=== PATIENT | male | born 1950 | race American Indian/Alaskan Native ===

== ENCOUNTER 2016-11-08 13:11 | Emergency (ER) | payer MEDICARE, OTHER ==
[2016-11-08 13:39] VITALS: TEMP 98.9; BMI 32.5
--- NOTE | 2016-11-08 13:52 | ED PDOC ---
Arrival/HPI - General Chief Complaint: Lower Extremity Problem/Injury Time Seen by Provider: 11/08/16 13:19 Historian: Patient - History of Present Illness Narrative History of Present Illness (Text): 11/08/16 13:49 66 y/o male, pmh including lupus/htn, nkda, c/o lt. ankle and foot pain s/p twisted about 3 days ago while trying to get up from the electric wheel chair. Pt. has been having pain and swelling, no numbness or tingling, no dizziness, no night sweat, no rash, no skin pain, no other medical or psychological complaints. Past Medical History - Provider Review Nursing Documentation Reviewed: Yes - Infectious Disease Hx of Infectious Diseases: None - Cardiac Hx Pacemaker: No - Pulmonary Hx Respiratory Disorders: No - Neurological Hx Paralysis: No - HEENT Other/Comment: glasses - Renal Hx Renal Disorder: No - Endocrine/Metabolic Hx Endocrine Disorders: No - Hematological/Oncological Hx Blood Transfusions: No Hx Blood Transfusion Reaction: No - Integumentary Hx Dermatological Disorder: No - Musculoskeletal/Rheumatological Hx Musculoskeletal Disorders: Yes Other/Comment: MS - Gastrointestinal Hx Gastrointestinal Disorders: No - Genitourinary/Gynecological Hx Genitourinary Disorders: No - Psychiatric Hx Emotional Abuse: No Hx Physical Abuse: No Hx Substance Use: No - Surgical History Hx Musculoskeletal Surgery: Yes (left leg) - Anesthesia Hx Anesthesia: Yes Hx Anesthesia Reactions: No Hx Malignant Hyperthermia: No - Suicidal Assessment Feels Threatened In Home Enviroment: No Family/Social History - Physician Review Nursing Documentation Reviewed: Yes Family/Social History: Unknown Family HX Smoking Status: Heavy Smoker > 10 Cigarettes Daily Hx Alcohol Use: Yes (WEEKENDS ;PAST ETOH) Hx Substance Use: No Allergies/Home Meds Allergies/Adverse Reactions: Allergies No Known Allergies Allergy (Verified 04/13/16 09:50) Home Medications: Home Meds Medication Instructions Recorded Confirmed Dalfampridine [Ampyra] 10 mg PO BID 02/26/14 05/11/16 Losartan [Cozaar] 100 mg PO QAM 02/26/14 05/11/16 Natalizumab [Tysabri] 300 mg IVPB Q168D 01/09/15 05/11/16 Celecoxib [celeBREX] 200 mg PO BID 04/09/15 05/11/16 Amlodipine Besylate [Norvasc] 5 mg PO QAM 10/14/15 05/11/16 Zolpidem [Ambien] 10 mg PO HS 10/14/15 05/11/16 Nitrofurantoin Macrocrystals 100 mg PO BID 05/11/16 05/11/16 [Macrobid] Review of Systems - Review of Systems Constitutional: absent: Fatigue, Fevers Eyes: absent: Vision Changes ENT: absent: Hearing Changes Respiratory: absent: Cough Cardiovascular: absent: Chest Pain Gastrointestinal: absent: Abdominal Pain, Nausea, Vomiting Genitourinary Male: absent: Dysuria, Frequency Musculoskeletal: Arthralgias, Joint Swelling. absent: Back Pain, Neck Pain, Myalgias Skin: absent: Rash, Pruritis, Skin Lesions, Laceration, Abscess, Ulcer, Cellulitis Neurological: absent: Headache, Dizziness, Focal Weakness, Gait Changes, Speech Changes, Facial Droop, Disequilibrium, Seizure Physical Exam Vital Signs Reviewed: Yes Vital Signs Temp Pulse Resp BP Pulse Ox 11/08/16 13:34 98.9 F 68 18 160/77 H 96 Temperature: Afebrile Blood Pressure: Hypertensive Pulse: Regular Respiratory Rate: Normal Appearance: Positive for: Well-Appearing, Non-Toxic, Comfortable Pain Distress: Mild Mental Status: Positive for: Alert and Oriented X 3 - Systems Exam Head: Present: Atraumatic, Normocephalic Pupils: Present: PERRL Extroacular Muscles: Present: EOMI Conjunctiva: Present: Normal Mouth: Present: Moist Mucous Membranes Neck: Present: Normal Range of Motion Respiratory/Chest: Present: Clear to Auscultation, Good Air Exchange. No: Respiratory Distress, Accessory Muscle Use Cardiovascular: Present: Regular Rate and Rhythm, Normal S1, S2. No: Murmurs Abdomen: Present: Normal Bowel Sounds. No: Tenderness, Distention, Peritoneal Signs Back: Present: Normal Inspection Upper Extremity: Present: Normal Inspection. No: Cyanosis, Edema Lower Extremity: Present: Normal Inspection, Other (Lt. foot/ankle/knee: no knee tenderness or swelling, +ttp and swelling to the lt. laeral malleolus and dorsum foot with skin intact, no erythematous or cellulitis, no streaking or ulcer, +DPPT pulses, capillary refill< 2 seconds, neurovascular intact. ). No: Edema Neurological: Present: GCS=15, Speech Normal, Motor Func Grossly Intact, Memory Normal Skin: Present: Warm, Dry, Normal Color. No: Rashes Psychiatric: Present: Alert, Oriented x 3, Normal Insight, Normal Concentration Medical Decision Making ED Course and Treatment: 11/08/16 13:53 -lt. foot/ankle xray -LLE venuous doppler -pt. refused pain medication 11/08/16 15:39 -LLE venuous doppler: as per preliminary, no acute DVT -lt. ankle show no fracture or dislocation but there is degenerative changes. -lt. foot show 3rd metatarsal fracture with skin intact, no signs of infection, posterior splint applied with neurovascular intact by me. -Discharge home with education on continue your pain medication at home, posterior splint, non-weight bearing, follow up with your own pmd and foot doctor within 2 days, return to the ER for any new or worsening signs or symptoms. - RAD Interpretation Radiology Orders: 11/08/16 13:49 ANKLE LEFT 3 VIEWS ROUTINE [RAD] Stat FOOT LEFT 3 VIEWS ROUTINE [RAD] Stat DUPLEX LOWER EXTRM VEIN LEFT [US] Stat LLE venuous doppler: as per preliminary, no acute DVT Lt. foot xray: PROCEDURE: Left Foot Radiographs. HISTORY: Left foot sprain and pain x 3 days COMPARISON: None. FINDINGS: BONES: There is an acute transverse nondisplaced fracture in the base of the 3rd metatarsal. There is redemonstration of an nonunited fracture in the calcaneus. There is diffuse bone demineralization. There is no bone destruction. JOINTS: There is moderate degenerative osteoarthrosis in the 1st MTP joint with reduced joint space and marginal spurring. The remaining joint spaces are preserved. SOFT TISSUES: There is severe soft tissue swelling in the foot. OTHER FINDINGS: None. IMPRESSION: 1. Acute transverse nondisplaced fracture in the base of the 3rd metatarsal. Severe soft tissue swelling in the foot. 2. Old nonunited fracture in the calcaneus. Lt. ankle xray: PROCEDURE: Left Ankle Radiographs. HISTORY: lt. ankle sprain and pain x 3 days COMPARISON: 08/11/2015 FINDINGS: BONES: There is no acute displaced fracture. There is an old nonunited fracture in the calcaneus. There is diffuse bone demineralization JOINTS: Normal. Ankle mortise maintained. Talar dome intact SOFT TISSUES: There is moderate periarticular soft tissue swelling. OTHER FINDINGS: None. IMPRESSION: No acute displaced fracture or dislocation. Steel Buffer: Radiologist - PA / BOWL ATTENDANT / Resident Statement MD/ has reviewed & agrees with the documentation as recorded. Disposition/Present on Arrival - Present on Arrival Any Indicators Present on Arrival: No History of DVT/PE: No History of Uncontrolled Diabetes: No Urinary Catheter: No History of Decub. Ulcer: No History Surgical Site Infection Following: None - Disposition Have Diagnosis and Disposition been Completed?: Yes Diagnosis: Foot fracture Disposition: HOME/ ROUTINE Disposition Time: 13:53 Patient Plan: Discharge Condition: GOOD Additional Instructions: Discharge home with education on continue your pain medication at home, posterior splint, non-weight bearing, follow up with your own pmd and foot doctor within 2 days, return to the ER for any new or worsening signs or symptoms. Referrals: PCP,NO [Primary Care Provider] - Follow up with primary Carolin Lerma DPM [Staff Provider] - Follow up with primary Forms: WORK NOTE
--- NOTE | 2016-11-08 15:24 | RAD ---
PROCEDURE: Left Foot Radiographs. HISTORY: Left foot sprain and pain x 3 days COMPARISON: None. FINDINGS: BONES: There is an acute transverse nondisplaced fracture in the base of the 3rd metatarsal. There is redemonstration of an nonunited fracture in the calcaneus. There is diffuse bone demineralization. There is no bone destruction. JOINTS: There is moderate degenerative osteoarthrosis in the 1st MTP joint with reduced joint space and marginal spurring. The remaining joint spaces are preserved. SOFT TISSUES: There is severe soft tissue swelling in the foot. OTHER FINDINGS: None. IMPRESSION: 1. Acute transverse nondisplaced fracture in the base of the 3rd metatarsal. Severe soft tissue swelling in the foot. 2. Old nonunited fracture in the calcaneus.
--- NOTE | 2016-11-08 15:29 | RAD ---
PROCEDURE: Left Ankle Radiographs. HISTORY: lt. ankle sprain and pain x 3 days COMPARISON: 08/11/2015 FINDINGS: BONES: There is no acute displaced fracture. There is an old nonunited fracture in the calcaneus. There is diffuse bone demineralization JOINTS: Normal. Ankle mortise maintained. Talar dome intact SOFT TISSUES: There is moderate periarticular soft tissue swelling. OTHER FINDINGS: None. IMPRESSION: No acute displaced fracture or dislocation.
--- NOTE | 2016-11-08 16:17 | US ---
PROCEDURE: Left lower extremity venous US HISTORY: Leg pain and swelling. Evaluate for DVT. PHYSICIAN(S): Jovanni Hazel MD. TECHNIQUE: Duplex sonography and color-flow Doppler with graded compression were used to evaluate the deep venous system of the left lower extremity. The exam is limited by body habitus and edema. FINDINGS: The visualized deep venous system of the left lower extremity is sonographically normal and compressible. Normal wave forms and augmentation are seen. There is no sonographic evidence for deep venous thrombosis in the visualized segments of the left lower extremity. IMPRESSION: 1. No sonographic evidence for deep venous thrombosis in the visualized segments of the left lower extremity.
[2016-11-08 16:48] VITALS: BP 152/83; PULSE 76; RESP 16; O2SAT 99
== END 2016-11-08 16:45 | disposition home or self-care (01) ==
LOC: ED 13:11
DX: S92.902A Unspecified fracture of left foot, initial encounter for closed fracture (principal); X50.0XXA Overexertion from strenuous movement or load, initial encounter; Y92.89 Other specified places as the place of occurrence of the external cause

== ENCOUNTER 2017-03-15 06:54 | Day surgery (SDC) | payer MEDICARE, OTHER ==
[2017-03-15] MEDS ORDERED: Midazolam 2 MG/2 ML VIAL ONE (09:11)
[2017-03-15] MEDS ORDERED: Propofol 10 mg/ml Inj (20 ML) ONE (09:12)
[2017-03-15] MEDS ORDERED: cefTRIAXone (Rocephin) 1 gm Inj ONE (09:31)
[2017-03-15] MEDS ORDERED: Iohexol 240 (50 ml) ONE (09:31)
[2017-03-15] MEDS ORDERED: Lactated Ringer's 1,000 ML IV SCH (10:06)
--- NOTE | 2017-03-15 10:40 | OP ---
PROCEDURE DATE: 03/15/2017 PREOPERATIVE DIAGNOSIS: Bladder tumor history. POSTOPERATIVE DIAGNOSIS: Bladder tumor history with urethral stricture. PROCEDURE: Urethral dilatation, cystoscopy, bladder biopsy and fulguration and bilateral retrograde ureteropyelogram. SURGEON: Dr. Liriano. ANESTHESIA: LMA. DESCRIPTION OF PROCEDURE: After adequate LMA general anesthesia was given the patient was placed lithotomy, prepped and draped in the usual manner. A 22-Guatemalan cystourethroscope was introduced. He had a urethral stricture that was wide caliber, but too small to admit the 22-Guatemalan cystoscope. I then switched to a 17-Guatemalan cystoscope, was able to navigate through the area and inspected the bladder. There was minimal prostatitic occlusion. The bladder itself had one questionable erythema on the posterior wall. The orifices were normal in appearance with clear reflex. No stones or foreign bodies. I then removed the 17-Guatemalan cystoscope and reintroduced the 22-Guatemalan cystourethroscopy which I could do now that the urethral stricture had been dilated by the 17-Guatemalan cysto. The questionable erythematous area in the posterior wall excised and fulgurated. Attention was then directed to orifices where bilateral retrograde ureteropyelograms are carried out and appeared normal to me with no filling defects. Films will be sent for outside interpretation as well. The area was biopsied where we inspected. There was no evidence of any bleeding. The bladder was drained. The cystoscope was removed. The patient was awaken in recovery room in good condition. Shlomo Liriano MD
[2017-03-15 11:30] VITALS: BP 120/60; PULSE 50; RESP 18; TEMP 97.6; O2SAT 96
--- NOTE | 2017-03-15 12:41 | CP.PCM.PN ---
Subjective - Date & Time of Evaluation Date of Evaluation: 03/15/17 Time of Evaluation: 11:50 - Subjective Subjective: PT WAS IN SAME DAY FOR CYSTOSCOPE , HAS HX OF ms, does not want to wait for transpoert wants to sign ama. Objective - Vital Signs/Intake and Output Vital Signs (last 24 hours): Temp Pulse Resp BP Pulse Ox 97.6 F 50 L 18 120/60 96 03/15/17 11:15 03/15/17 11:15 03/15/17 11:15 03/15/17 11:15 03/15/17 11:15 Intake and Output: 03/15/17 03/15/17 06:59 18:59 Intake Total 75 Balance 75 Assessment and Plan - Assessment and Plan (Free Text) Assessment: hx of ms . s/p systoscopy. Plan: AMA. risk of fall injury explained to pt.
--- NOTE | 2017-03-15 13:35 | RAD ---
PROCEDURE: Retrograde pyelogram HISTORY: Bilateral retrograde pyelogram COMPARISON: TECHNIQUE: Fluoroscopy was provided in the operating room. 38 seconds of fluoro time. 6 images submitted FINDINGS: The ureters and renal collecting systems are unremarkable IMPRESSION: As above
[2017-03-16] MEDS ORDERED: HYDROmorphone 0.5 mg/0.5 ml ISec ONE (10:09)
== END 2017-03-15 12:15 | disposition home or self-care (01) ==
LOC: SDS 06:54
PROVIDERS: ATTEND Urology
DX: D30.3 Benign neoplasm of bladder (principal); Z85.51 Personal history of malignant neoplasm of bladder; N35.9 Urethral stricture, unspecified; I10 Essential (primary) hypertension; G35 Multiple sclerosis; M19.90 Unspecified osteoarthritis, unspecified site; F17.200 Nicotine dependence, unspecified, uncomplicated
CPT/HCPCS: 52005; 52224; 74420; 88108; 88305; J0696; J2001; J2250; J2704; J2765; J3010; J7120; Q9966

== ENCOUNTER 2018-01-16 06:16 | Day surgery (SDC) | payer MEDICARE, OTHER ==
[2018-01-16 07:01] VITALS: BMI 32.5
[2018-01-16] MEDS ORDERED: Etomidate 20 mg/10ml Inj IV ONE (07:22)
[2018-01-16] MEDS ORDERED: Sevoflurane - Inhalation Anesthetic Liq (250 ml) ONE (07:24)
[2018-01-16] MEDS ORDERED: Iohexol 240 (50 ml) ONE (07:48)
[2018-01-16] MEDS ORDERED: cefTRIAXone (Rocephin) 1 gm Inj ONE (07:48)
[2018-01-16] MEDS ORDERED: Lidocaine 2% Jelly (Uro-Jet) ONE (07:48)
[2018-01-16] MEDS ORDERED: HYDROmorphone 0.5 mg/0.5 ml ISec IVP PRN (09:12)
[2018-01-16] MEDS ORDERED: Lactated Ringer's 1,000 ML IV SCH (09:15)
--- NOTE | 2018-01-16 10:05 | RAD ---
PROCEDURE: Retrograde pyelogram HISTORY: R/O OBSTRUCTION COMPARISON: TECHNIQUE: 43.6 seconds of fluoro time. Cumulative dose 0.4 mGy. Nineteen images submitted FINDINGS: Both renal collecting systems and ureters are unremarkable. There are no filling defects or hydronephrosis. IMPRESSION: As above
[2018-01-16 10:29] VITALS: RESP 18; TEMP 97.5
[2018-01-16 11:06] VITALS: BP 146/77; PULSE 81; O2SAT 94
--- NOTE | 2018-01-16 21:10 | OP ---
PROCEDURE DATE: 01/16/2018 PREOPERATIVE DIAGNOSIS: Bladder cancer history. POSTOPERATIVE DIAGNOSIS: Bladder cancer history. PROCEDURES: Cystoscopy, bilateral retrograde pyelograms, bladder biopsy and fulguration. ATTENDING SURGEON: Harshal Cartagena MD. TYPE OF ANESTHESIA: General. SPECIMENS: Bladder biopsies were sent to pathology. DRAINS: There were none. COMPLICATIONS: There were none. OPERATIVE FINDINGS: After informed consent was obtained, the patient was taken to the operative room, placed on the operating room table, and anesthesia was administered. The patient was then placed in the dorsal lithotomy position and prepped and draped in usual sterile fashion. A 22-Urdu cystoscope was placed in the patient's urethra and advanced proximally under direct vision until the bladder was entered. A full survey inspection of the bladder was then performed which revealed no stones or foreign bodies. There was grade 1 trabeculation noted. Both ureteral orifices were visualized and appeared within normal limits. There were no papillary tumors noted; however, there was marked patchy erythema with raised areas of erythema, most pronounced on the posterior wall and at the dome. At this point, a 5-Urdu [place] tip catheter was introduced through the cystoscope and guided into the left ureteral orifice. A left retrograde pyelogram was then performed by instilling contrast through the Cleveland catheter into the left ureter, during real-time fluoroscopy. The left retrograde pyelogram appeared grossly within normal limits. There was no evidence of filling defects or obstruction. At this point, the catheter was moved into the right ureteral orifice and a right retrograde pyelogram was performed. Right retrograde pyelogram also appeared grossly within normal limits. Both systems were noted to drain promptly with no obvious filling defects noted. The films were submitted to radiology for interpretation. At this point, the open-ended catheter was removed and a cold cup biopsy forceps was passed. Biopsy of the patchy erythema on the posterior wall was taken and sent to pathology. A second separate biopsy of the raised erythema at the dome was also taken and sent to pathology as specimen. A Bugbee electrode was then passed. The biopsy sites were then fulgurated. There was complete hemostasis. The Bugbee electrode was then used to fulgurate the entire areas of erythema and a few other smaller patches of erythema with fear suspicious for possible carcinoma in situ. At this point, a final inspection was made. There was complete hemostasis from the biopsy sites as well as from the fulgurated areas. There were no remaining suspicious lesions. At this point, the bladder was drained. The cystoscope was removed. Exam of the urethra revealed a mild narrowing throughout the urethra. The prostate was occlusive in appearance with enlarged lateral lobes. The patient tolerated the procedure well. He was returned to the supine position and taken to the recovery room awake, in stable condition. Harshal Cartagena MD
== END 2018-01-16 13:45 | disposition home or self-care (01) ==
LOC: SDS 06:16
PROVIDERS: ATTEND Urology
DX: C67.9 Malignant neoplasm of bladder, unspecified (principal); Z85.51 Personal history of malignant neoplasm of bladder; G35 Multiple sclerosis; I10 Essential (primary) hypertension
CPT/HCPCS: 52204; 74420; 88305; C1758; J0696; J1170; J3010; J7120 ×2; Q9966

== ENCOUNTER 2018-09-21 13:50 | Emergency (ER) | payer MEDICARE, OTHER ==
[2018-09-21 13:51] VITALS: BMI 35.4
[2018-09-21 14:29] VITALS: TEMP 98.1
[2018-09-21] MEDS ORDERED: Albuterol-Ipratrop 3 mg / 0.5 (3 ml) UD IH SCH (14:45)
--- NOTE | 2018-09-21 14:50 | ED PDOC ---
Arrival/HPI - General Chief Complaint: Medical Clearance Time Seen by Provider: 09/21/18 14:29 - History of Present Illness Narrative History of Present Illness (Text): 09/21/18 14:46 68 yr old male w/ hx of MS on Tysaberi (every 8 weeks), HTN, 50 year smoking history p/w medical clearance. Pt was seen by Dr. Grant today and while getting infusion of Tysaberi for MS- Dr. Grant noted that the patient was wheezing. Pt noted mild wheezing and sob but no chest pain. He notes that before he started the infusion he was smoking a cigarette and notes that after smoking he normally has some wheezes. He denies any history of infusions and wheezing happening at the same time. Currently he notes mild sob and mild wheezing. No Fever, chills or night sweats. Has not had body aches or cough. No other complaints. Past Medical History - Infectious Disease Hx of Infectious Diseases: None - Cardiac Hx Cardiac Disorders: Yes Hx Hypertension: Yes - Pulmonary Hx Respiratory Disorders: No - Neurological Hx Multiple Sclerosis: Yes - HEENT Other/Comment: glasses - Renal Hx Renal Disorder: No - Endocrine/Metabolic Hx Endocrine Disorders: No - Hematological/Oncological Hx Blood Transfusions: No Hx Blood Transfusion Reaction: No - Integumentary Hx Dermatological Disorder: No - Musculoskeletal/Rheumatological Hx Musculoskeletal Disorders: Yes - Gastrointestinal Hx Gastrointestinal Disorders: No - Genitourinary/Gynecological Hx Genitourinary Disorders: No - Psychiatric Hx Emotional Abuse: No Hx Physical Abuse: No Hx Substance Use: No - Surgical History Hx Musculoskeletal Surgery: Yes (left leg) - Anesthesia Hx Anesthesia Reactions: No Hx Malignant Hyperthermia: No - Suicidal Assessment Feels Threatened In Home Enviroment: No Family/Social History Family/Social History: Unknown Family HX Smoking Status: Heavy Smoker > 10 Cigarettes Daily Hx Alcohol Use: Yes (WEEKENDS ;PAST ETOH) Hx Substance Use: No Allergies/Home Meds Allergies/Adverse Reactions: Allergies No Known Allergies Allergy (Verified 04/13/16 09:50) Home Medications: Home Meds Medication Instructions Recorded Confirmed Dalfampridine [Ampyra] 10 mg PO BID 02/26/14 01/16/18 Losartan [Cozaar] 100 mg PO QAM 02/26/14 01/16/18 Celecoxib [celeBREX] 200 mg PO BID 04/09/15 01/16/18 Natalizumab [Tysabri] 20 mg IV Q42D 01/12/17 01/16/18 RX: Aspirin [Aspirin EC] 325 mg PO DAILY 12/20/17 01/16/18 Ceftin 500 mg PO BID 01/16/18 01/16/18 NIFEdipine ER [Nifedipine ER] 60 mg PO DAILY 01/16/18 01/16/18 Review of Systems - Review of Systems Constitutional: absent: Fatigue, Weight Change Eyes: absent: Vision Changes, Photophobia ENT: absent: Hearing Changes, Tinnitus Respiratory: Wheezing. absent: SOB, Cough, Sputum Cardiovascular: absent: Chest Pain, Palpitations, Edema, Calf Pain, ATWOOD Gastrointestinal: absent: Abdominal Pain, Stool Changes, Constipation, Diarrhea, Nausea, Vomiting, Appetite Changes, Hematochezia, Hematemesis Genitourinary Male: absent: Dysuria, Frequency, Hematuria Musculoskeletal: absent: Arthralgias, Back Pain, Neck Pain Skin: absent: Rash, Pruritis, Skin Lesions Neurological: absent: Headache, Dizziness, Focal Weakness Endocrine: absent: Diaphoresis Hemo/Lymphatic: absent: Adenopathy Psychiatric: absent: Anxiety Physical Exam Vital Signs Temp Pulse Resp BP Pulse Ox 09/21/18 14:24 98.1 F 102 H 20 125/81 93 L Temperature: Afebrile Blood Pressure: Normal Pulse: Regular Respiratory Rate: Normal Appearance: Positive for: Well-Appearing, Non-Toxic Pain Distress: None Mental Status: Positive for: Alert and Oriented X 3 - Systems Exam Head: Present: Atraumatic, Normocephalic Pupils: Present: PERRL Extroacular Muscles: Present: EOMI Conjunctiva: Present: Normal Ears: Present: Normal, NORMAL TM Mouth: Present: Moist Mucous Membranes Pharnyx: Present: Normal. No: ERYTHEMA, EXUDATE Nose (External): Present: Atraumatic Neck: Present: Normal Range of Motion. No: Meningeal Signs, MIDLINE TENDERNESS Respiratory/Chest: Present: Wheezes (moderate L sided wheezes, Mild R sided wheezes). No: Respiratory Distress, Accessory Muscle Use Cardiovascular: Present: Tachycardic. No: Rub, Gallop Abdomen: No: Tenderness, Distention Back: Present: Normal Inspection. No: CVA Tenderness Upper Extremity: Present: Normal Inspection, NORMAL PULSES, Neurovascularly Intact. No: Cyanosis, Edema Lower Extremity: Present: Normal Inspection, Neurovascularly Intact. No: Edema, CALF TENDERNESS Neurological: Present: GCS=15, Speech Normal Skin: Present: Warm, Dry Medical Decision Making ED Course and Treatment: 09/21/18 14:57 68 yr old male w/ hx of MS, HTN, p/w wheezing. He denies any current sob, but notable wheezes noted on exam L greater than R. Was sent in by Dr. Grant to evaluate for wheezing. Pt denies any rash or tongue swelling or shortness of breath or tickling to the back of his throat. He denies any allergy like symptoms at this time or during the infusion. He denies any infectious symptoms. Given wheezing, hx of extensive smoking hx- pt likely has COPD vs bronchitis, undiagnosed. Will seek imaging and labs. 09/21/18 16:35 EKG: Afib, 94, non tachy possible new onset afib? went to evaluate patient- Patient eloped from the Emergency department. Called pts home number: no response - RAD Interpretation Radiology Orders: 09/21/18 14:41 CHEST TWO VIEWS (PA/LAT) [RAD] Stat - Medication Orders Current Medication Orders: Albuterol/Ipratropium (Duoneb 3 Mg/0.5 Mg (3 Ml) Ud) 3 ml IH Q15M BERNY Stop: 09/21/18 15:16 Disposition/Present on Arrival - Present on Arrival Any Indicators Present on Arrival: No History of DVT/PE: No History of Uncontrolled Diabetes: No Urinary Catheter: No History of Decub. Ulcer: No History Surgical Site Infection Following: None - Disposition Have Diagnosis and Disposition been Completed?: Yes Diagnosis: Evaluation by medical service required Disposition: LEFT W/O TREATMENT - ER ONLY Disposition Time: 16:35 Condition: UNKNOWN Referrals: Brandon Lincoln MD [Primary Care Provider] - Follow up with primary Forms: [employer] ([place])
[2018-09-21 15:15] VITALS: BP 123/75; PULSE 94; RESP 18; O2SAT 96
--- NOTE | 2018-09-21 23:10 | CARD ---
APPROVED REPORT Date of service: 09/21/2018 EKG Measurement Heart [id number] <Conclusion> Atrial fibrillation Left axis deviation NDSTT abnormalities Abnormal ECG
== END 2018-09-21 15:20 | disposition left against medical advice (07) ==
LOC: ED 13:50
DX: Z04.89 Encounter for examination and observation for other specified reasons (principal); G35 Multiple sclerosis; I10 Essential (primary) hypertension; F17.210 Nicotine dependence, cigarettes, uncomplicated; Z79.899 Other long term (current) drug therapy

== ENCOUNTER 2018-11-04 09:35 | Observation (INO) | payer MEDICARE, OTHER ==
[2018-11-04 09:46] VITALS: BMI 36.9
[2018-11-04] MEDS ORDERED: Multivitamin (MVI) 10 ML, Thiamine 100 MG, Folic Acid 1 MG in Sodium Chloride 0.9% 1,00... IV ONE (10:16)
[2018-11-04] MEDS ORDERED: Albuterol-Ipratrop 3 mg / 0.5 (3 ml) UD IH STA (10:19)
[2018-11-04 10:33] LABS: BASO # 0.02 K/mm3 (0.0-2.0); BASO % 0.2 % (0.0-3.0); EOS # 0.1 (0.0-0.7); EOS % 0.6 % (1.5-5.0); HEMOGLOBIN 14.7 g/dL (14.0-18.0); LYMPH # 0.9 (1.2-3.4); LYMPH % 9.8 % (22.0-35.0); MEAN CELL VOLUME 91.8 fl (80.0-105.0); MEAN CORPUSCULAR HEMOGLOBIN 30.2 pg (25.0-35.0); MEAN PLATELET VOLUME 9.3 fl (7.0-11.0); MONO # 0.3 (0.1-0.6); MONO % 3.3 % (1.0-6.0); RBC 4.86 10^6/uL (3.5-6.1); RED CELL DISTRIBUTION WIDTH 15.2 % (11.5-14.5); WHITE BLOOD COUNT 8.8 10^3/uL (4.5-11.0)
--- NOTE | 2018-11-04 10:36 | ED PDOC ---
Arrival/HPI - General Chief Complaint: Dizziness/Lightheaded Time Seen by Provider: 11/04/18 09:47 Historian: Patient - History of Present Illness Narrative History of Present Illness (Text): 11/04/18 10:34 A 68 year old male, whose past medical history includes hypertension and MS, presents to the emergency department complaining of dizziness and lightheadedness. Patient reports he was getting out of bed and as he was getting in his wheelchair, he began experiencing dizziness. States episode lasted for 2 minutes, and began feel nauseous and had 1 episode of vomiting. Patient denies any head trauma, LOC, chest pain, palpitations, shortness of breath, URI, fever, diarrhea, abdominal pain, or any other complaints at this time. Patient admits to drinking alcohol at least two times a week, and reports normal appetite. PMD Latonia Garrett Past Medical History - Provider Review Nursing Documentation Reviewed: Yes - Infectious Disease Hx of Infectious Diseases: None - Cardiac Hx Cardiac Disorders: Yes Hx Hypertension: Yes - Pulmonary Hx Respiratory Disorders: No - Neurological Hx Multiple Sclerosis: Yes - HEENT Other/Comment: glasses - Renal Hx Renal Disorder: No - Endocrine/Metabolic Hx Endocrine Disorders: No - Hematological/Oncological Hx Blood Transfusions: No Hx Blood Transfusion Reaction: No - Integumentary Hx Dermatological Disorder: No - Musculoskeletal/Rheumatological Hx Musculoskeletal Disorders: Yes - Gastrointestinal Hx Gastrointestinal Disorders: No - Genitourinary/Gynecological Hx Genitourinary Disorders: No - Psychiatric Hx Substance Use: No - Surgical History Hx Musculoskeletal Surgery: Yes (left leg) - Anesthesia Hx Anesthesia Reactions: No Hx Malignant Hyperthermia: No - Suicidal Assessment Feels Threatened In Home Enviroment: No Family/Social History - Physician Review Nursing Documentation Reviewed: Yes Family/Social History: No Known Family HX Smoking Status: Heavy Smoker > 10 Cigarettes Daily Hx Alcohol Use: Yes (WEEKENDS ;PAST ETOH) Hx Substance Use: No Allergies/Home Meds Allergies/Adverse Reactions: Allergies No Known Allergies Allergy (Verified 04/13/16 09:50) Home Medications: Home Meds Medication Instructions Recorded Confirmed Dalfampridine [Ampyra] 10 mg PO BID 02/26/14 01/16/18 Losartan [Cozaar] 100 mg PO QAM 02/26/14 01/16/18 Celecoxib [celeBREX] 200 mg PO BID 04/09/15 01/16/18 Natalizumab [Tysabri] 20 mg IV Q42D 01/12/17 01/16/18 Aspirin [Aspirin EC] 325 mg PO DAILY 12/20/17 01/16/18 Ceftin 500 mg PO BID 01/16/18 01/16/18 NIFEdipine ER [Nifedipine ER] 60 mg PO DAILY 01/16/18 01/16/18 Review of Systems - Physician Review All systems were reviewed & negative as marked: Yes - Review of Systems Constitutional: absent: Fevers Respiratory: absent: SOB Cardiovascular: absent: Chest Pain, Palpitations Gastrointestinal: absent: Abdominal Pain, Diarrhea Neurological: Dizziness Physical Exam Vital Signs Reviewed: Yes Vital Signs Temp Pulse Resp BP Pulse Ox 11/04/18 09:36 98.1 F 79 18 108/63 69 L Temperature: Afebrile Blood Pressure: Normal Pulse: Regular Respiratory Rate: Normal Appearance: Positive for: Other (smells of alcohol) Pain Distress: None Mental Status: Positive for: Alert and Oriented X 3 Finger Stick Blood Glucose: 132 - Systems Exam Head: Present: Atraumatic, Normocephalic Pupils: Present: PERRL Extroacular Muscles: Present: EOMI Conjunctiva: Present: Normal Mouth: Present: Dry Neck: Present: Normal Range of Motion Respiratory/Chest: Present: Clear to Auscultation, Good Air Exchange. No: Respiratory Distress, Accessory Muscle Use Cardiovascular: Present: Regular Rate and Rhythm, Normal S1, S2. No: Murmurs Abdomen: No: Tenderness, Distention, Peritoneal Signs Back: Present: Normal Inspection Upper Extremity: Present: Normal Inspection. No: Cyanosis, Edema Lower Extremity: Present: Normal Inspection. No: Edema Neurological: Present: GCS=15, CN II-XII Intact, Speech Normal Skin: Present: Warm, Dry, Normal Color. No: Rashes Psychiatric: Present: Alert, Oriented x 3, Normal Insight, Normal Concentration Medical Decision Making ED Course and Treatment: 11/04/18 10:37 Previous medical records reviewed, on 09/21/18 patient was seen this ER for evaluation for medical clearance as requested by his neurologist, was wheezing in the ER and EKG showed A fib at that time. Pt eloped from the ER. Prior EKGs from previous visits starting from Sep 2018 were reviewed and it seems that the A fib is new. Impression: 68 year old male with dizziness and lightheadedness. Physical exam shows patient has dry mucous membranes and smells of alcohol. Plan: -- EKG -- Chest X-ray -- Labs -- Head CT -- Duoneb -- IV Fluids -- Urine Culture -- Urinalysis -- Reassess and disposition Progress Notes: EKG: Ordered, reviewed, and independently interpreted the EKG. Rate : 76 BPM Rhythm : A-Fib Interpretation : No ST-segment elevations or depressions, no T-wave inversions, normal intervals. Comparison : No previous EKG for comparison. CXR : NAD. Labs reviewed : trop (-), alcohol (-), rest of the labs wnl. 11/04/18 11:45 CT head w/o contrast : Generalized atrophy. Moderate nonspecific white matter changes. Dictated by Ne Jimenez MD. On reevaluation, patient is sleeping comfortably in bed in no acute distress. Patient has no complaints at this time, reports no dizziness, headache, chest pain, palpitations or shortness of breath. On exam, patient remains awake alert and oriented 3, repeat neuro exam shows no focal findings. Case d/w Dr. Heath covering for Dr. Lincoln, agrees with plan for observation to telemetry for near syncope, new onset A fib. - RAD Interpretation Radiology Orders: 11/04/18 10:15 CHEST PORTABLE [RAD] Stat 11/04/18 10:16 HEAD W/O CONTRAST [CT] Stat - Medication Orders Current Medication Orders: Multivitamins/Vitamin C 10 ml/Thiamine HCl 100 mg/ Folic Acid 1 mg/ Sodium Chloride 1,011.2 mls @ 200 mls/hr IV .Q5H4M ONE Stop: 11/04/18 15:19 Discontinued Medications Albuterol/Ipratropium (Duoneb 3 Mg/0.5 Mg (3 Ml) Ud) 3 ml IH STAT STA Stop: 11/04/18 10:20 Last Admin: 11/04/18 10:25 Dose: 3 ml - PA / [employer] / Resident Statement MD/DO has reviewed & agrees with the documentation as recorded. - Scribe Statement The provider has reviewed the documentation as recorded by the Gian Romano Provider Scribe Attestation: All medical record entries made by the Scribe were at my direction and personally dictated by me. I have reviewed the chart and agree that the record accurately reflects my personal performance of the history, physical exam, medical decision making, and the department course for this patient. I have also personally directed, reviewed, and agree with the discharge instructions and disposition. Disposition/Present on Arrival - Present on Arrival Any Indicators Present on Arrival: No History of DVT/PE: No History of Uncontrolled Diabetes: No Urinary Catheter: No History of Decub. Ulcer: No History Surgical Site Infection Following: None - Disposition Have Diagnosis and Disposition been Completed?: Yes Diagnosis: Near syncope, Atrial fibrillation Disposition: HOSPITALIZED Disposition Time: 11:45 Patient Plan: Observation (to remote tele) Patient Problems: Current Active Problems Problem Status Onset Near syncope Acute Atrial fibrillation Acute Condition: STABLE
[2018-11-04 10:39] LABS: INR 1.08; PARTIAL THROMBOPLASTIN TIME 33.1 Seconds (26.9-38.3); PROTHROMBIN TIME 12.2 SECONDS (9.4-12.5)
[2018-11-04 10:45] LABS: ALB/GLOB RATIO 0.9 (1.1-1.8); ALBUMIN 4.2 g/dL (3.0-4.8); ALT/SGPT 10 U/L (7-56); AST/SGOT 25 U/L (17-59); BLOOD UREA NITROGEN 14 mg/dL (7-21); CALCIUM 9.6 mg/dL (8.4-10.5); GFR NON-AFRICAN AMERICAN > 60
[2018-11-04 10:56] LABS: TROPONIN I < 0.01 ng/mL
--- NOTE | 2018-11-04 11:22 | CT ---
Date of service: 11/04/2018 PROCEDURE: CT HEAD WITHOUT CONTRAST. HISTORY: near syncope COMPARISON: None available. TECHNIQUE: Axial computed tomography images were obtained through the head/brain without intravenous contrast. Radiation dose: Total exam DLP = 1009.98 mGy-cm. This CT exam was performed using one or more of the following dose reduction techniques: Automated exposure control, adjustment of the mA and/or kV according to patient size, and/or use of iterative reconstruction technique. FINDINGS: HEMORRHAGE: No intracranial hemorrhage. BRAIN: Diffuse atrophy with prominence of the ventricles and sulci noted. No mass effect or edema. Moderate scattered periventricular and subcortical white matter hypodensities, which are nonspecific, but often seen with chronic microvascular ischemic disease. Please note that MRI with diffusion imaging is more sensitive in the detection of acute ischemic event. VENTRICLES: No hydrocephalus. CALVARIUM: Unremarkable. PARANASAL SINUSES: Unremarkable as visualized. No significant inflammatory changes. MASTOID AIR CELLS: Unremarkable as visualized. No inflammatory changes. OTHER FINDINGS: None. IMPRESSION: Generalized atrophy. Moderate nonspecific white matter changes.
[2018-11-04 12:54] LABS: PH,URINE 7.5 (4.7-8.0); URINE BILIRUBIN NEGATIVE (NEGATIVE); URINE BLOOD NEGATIVE (NEGATIVE); URINE GLUCOSE (UA) NEGATIVE (NEGATIVE); URINE LEUKOCYTE ESTERASE NEGATIVE Leu/uL (NEGATIVE); URINE PROTEIN TRACE mg/dL (<30 mg/dL); URINE UROBILINOGEN 0.2 E.U./dL (<1 E.U./dL)
[2018-11-04 12:55] LABS: URINE APPEARANCE CLEAR (CLEAR); URINE COLOR YELLOW (YELLOW)
--- NOTE | 2018-11-04 12:58 | RAD ---
HISTORY: near syncope COMPARISON: Chest x-ray performed 12/20/17 TECHNIQUE: Chest, one view. FINDINGS: LUNGS: Chronic appearing interstitial markings. Correlate clinically for possibility of mild superimposed infection or edema. PLEURA: No significant pleural effusion identified. No definite pneumothorax . CARDIOVASCULAR: Cardiomegaly. Dense atherosclerotic calcifications of an ectatic aorta. OSSEOUS STRUCTURES: Osseous demineralization. Degenerative changes. VISUALIZED UPPER ABDOMEN: Unremarkable. OTHER FINDINGS: None. IMPRESSION: Chronic appearing interstitial markings. Correlate clinically for possibility of mild superimposed infection or edema. Cardiomegaly.
[2018-11-04 13:15] LABS: URINE BACTERIA FEW /hpf; URINE EPITHELIAL CELLS 0 - 2 /hpf (0-5); URINE WBC 0 - 2 /hpf (0-6)
[2018-11-04 13:19] LABS: BARBITURATES, UR NEGATIVE (NEGATIVE); BENZODIAZEPINES, UR NEGATIVE (NEGATIVE); OPIATES, UR NEGATIVE (NEGATIVE); PHENCYCLIDINE, UR NEGATIVE (NEGATIVE)
[2018-11-04] MEDS ORDERED: NATALIZUMAB 300 MG IV SCH (16:15)
[2018-11-04] MEDS: CELEBREX PO SCH (17:10)
[2018-11-04] MEDS: Aspirin 325 mg EC Tablets PO SCH (17:16)
[2018-11-04] MEDS ORDERED: Pneumococcal 23-Valent Vaccine IM ONE (18:33)
[2018-11-04] MEDS ORDERED: Influenza Vaccine 60 mcg/0.5 mL SYR (4YR UP) IM ONE (18:33)
--- NOTE | 2018-11-04 20:56 | CARD ---
APPROVED REPORT Date of service: 11/04/2018 EKG Measurement Heart [id number] <Conclusion> Atrial fibrillation Left axis deviation Low voltage QRS Intraventricular conduction delay of RBBB type Diffuse NDSTT abnormalities Abnormal ECG
[2018-11-05] MEDS: Aspirin 325 mg EC Tablets PO SCH (09:22)
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
[2018-11-05] MEDS ORDERED: Aspirin 325 mg EC Tablets PO SCH (10:00)
[2018-11-05] MEDS: CELEBREX PO SCH ×2 (11:10→17:18)
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
[2018-11-06] MEDS ORDERED: Pantoprazole 40 mg EC Tab PO SCH (06:00)
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
[2018-11-06 08:13] VITALS: BP 128/79; PULSE 82; RESP 20; TEMP 99.1; O2SAT 96
[2018-11-06] MEDS ORDERED: Mupirocin 2% Ointment 15 GM TUBE TOP SCH (10:00)
--- NOTE | 2018-11-06 10:32 | PN ---
DATE: 11/06/2018 SUBJECTIVE: A 68-year-old black male with history of multiple sclerosis, CAD. The patient had near syncopal episode new onset atrial fibrillation. The patient is having a stress test today. PHYSICAL EXAMINATION GENERAL: The patient is more awake and alert this morning. VITAL SIGNS: Stable. Low grade fever 99.1 and otherwise blood pressure is 128/79. CHEST: Clear to auscultation. HEART: Regular sinus rhythm. EXTREMITIES: No edema. LABORATORY DATA: Unremarkable. The patient has a rate controlled atrial fibrillation, will be evaluated and has been on anticoagulation in the past for DVT. Brandon Lincoln MD
--- NOTE | 2018-11-06 11:24 | CP.PCM.PN ---
<Iraida Springer - Last Filed: 11/06/18 11:20> Subjective - Date & Time of Evaluation Date of Evaluation: 11/06/18 Time of Evaluation: 11:20 - Subjective Subjective: Iraida Springer, PGY-1, GI Progress Note for Dr. Chow Patient seen and evaluated at bedside. Patient had no acute overnight events. Patient reports vomiting stopped . Patient has had unremarkable bowel movements in this hospital stay with last bowel movement yesterday. Patient continues to have heart palpitations. Objective - Vital Signs/Intake and Output Vital Signs (last 24 hours): Temp Pulse Resp BP Pulse Ox 99.1 F 82 20 128/79 96 11/06/18 08:12 11/06/18 08:12 11/06/18 08:12 11/06/18 08:12 11/06/18 08:12 Intake and Output: 11/06/18 11/06/18 06:59 18:59 Intake Total 0 Balance 0 - Medications Medications: Current Medications Apixaban (Eliquis) 5 mg PO Q12 [facility]; Protocol Last Admin: 11/06/18 10:23 Dose: 5 mg Aspirin (Ecotrin) 81 mg PO DAILY [facility] Last Admin: 11/06/18 10:23 Dose: 81 mg Home Med (Home Med) 200 unit PO BID [facility] Last Admin: 11/05/18 17:18 Dose: Not Given Losartan Potassium (Cozaar) 100 mg PO DAILY [facility] Last Admin: 11/06/18 10:23 Dose: 100 mg Metoprolol Tartrate (Lopressor) 25 mg PO BID [facility] Last Admin: 11/06/18 10:23 Dose: 25 mg Mupirocin (Bactroban Ointment) 5 gm TOP BID [facility] Stop: 11/10/18 18:01 Last Admin: 11/06/18 10:23 Dose: 1 applic Ondansetron HCl (Zofran Inj) 4 mg IVP Q6H PRN PRN Reason: Nausea/Vomiting Last Admin: 11/04/18 18:42 Dose: 4 mg Pantoprazole Sodium (Protonix Ec Tab) 40 mg PO 0600 [facility] Last Admin: 11/06/18 05:44 Dose: Not Given - Labs Labs: 11/04/18 10:20 11/04/18 10:20 PT 12.2 SECONDS (9.4-12.5) 04/06/19 10:20 INR 1.08 11/04/18 10:20 APTT 33.1 Seconds (26.9-38.3) 11/04/18 10:20 - Constitutional Appears: Well, Non-toxic, No Acute Distress - Head Exam Head Exam: ATRAUMATIC, NORMAL INSPECTION, NORMOCEPHALIC - Eye Exam Eye Exam: EOMI, PERRL - ENT Exam ENT Exam: Mucous Membranes Moist - Respiratory Exam Respiratory Exam: Clear to Ausculation Bilateral, NORMAL BREATHING PATTERN - Cardiovascular Exam Cardiovascular Exam: Irregular Rhythm, +S1, +S2. absent: Murmur - GI/Abdominal Exam GI & Abdominal Exam: Soft, Normal Bowel Sounds. absent: Tenderness - Extremities Exam Extremities Exam: Full ROM, Normal Inspection. absent: Pedal Edema - Neurological Exam Neurological Exam: Alert, Awake, CN II-XII Intact, Oriented x3 - Skin Skin Exam: Dry, Intact Assessment and Plan - Assessment and Plan (Free Text) Assessment: 68 year old male with past medical history of hypertension, atrial fibrillation on eliquis, and MS presented to the emergency department complaining of dizziness and lightheadedness. GI was consulted for multiple episodes of vomiting prior to presentation. Plan: #Vomitingresolved #Atrial fibrillation on Eliquis #Chronic NSAIDs -aspirin and Celebrex #Obesity #Multiple sclerosis on Natalizumab #Bladder cancer -As patient is on aspirin and eliquis, patient should take prophylactic PPI to prevent GI ulcers -Progress diet as tolerated -Patient is currently asymptomatic, so endoscopy is not indicated at this time. -Patient should have colonoscopy as an outpatient for colon cancer screening. Patient plan discussed with Dr. Chow <Sarah Chow V - Last Filed: 11/07/18 01:04> Objective - Vital Signs/Intake and Output Vital Signs (last 24 hours): Temp Pulse Resp BP Pulse Ox 99.1 F 82 20 128/79 96 11/06/18 08:12 11/06/18 08:12 11/06/18 08:12 11/06/18 08:12 11/06/18 08:12 - Labs Labs: 11/04/18 10:20 11/04/18 10:20 PT 12.2 SECONDS (9.4-12.5) 11/04/18 10:20 INR 1.08 11/04/18 10:20 APTT 33.1 Seconds (26.9-38.3) 11/04/18 10:20 Attending/Attestation - Attestation I have personally seen and examined this patient.: Yes I have fully participated in the care of the patient.: Yes I have reviewed all pertinent clinical information, including history, physical exam and plan: Yes Notes (Text): This patient was evaluated with the resident. Tolerating the diet plan for discharge. Advised to elective colonoscopy follow-up advised to follow-up with the primary care physician. If the recurrence of the dyspeptic symptoms are vomiting episodes would need endoscopy evaluation 11/07/18 01:03
[2018-11-06] MEDS ORDERED: Aminophylline 25 mg/ml Inj ONE (11:51)
[2018-11-06] MEDS: CELEBREX PO SCH (14:11)
--- NOTE | 2018-11-06 18:06 | CARD ---
APPROVED REPORT Date of service: 11/06/2018 EXAM: Two-dimensional and M-mode echocardiogram with Doppler and color Doppler. INDICATION LV Function:SystolicDiastolic 2D DIMENSIONS Left Atrium (2D)4.1 (1.6-4.0cm)IVSd1.1 (0.7-1.1cm) LVDd5.0 (3.9-5.9cm)PWd1.2 (0.7-1.1cm) M-Mode DIMENSIONS Aortic Root2.70 (2.2-3.7cm)Aortic Cusp Exc.2.00 (1.5-2.0cm) Aortic Valve AoV Peak [id number]/Gabrielle Peak GR.8mmHg Mitral Valve E/A ratio0.0 TDI E/Lateral E'0.0E/Medial E'0.0 LEFT VENTRICLE The left ventricle is normal size. There is borderline to mild concentric left ventricular hypertrophy. Left ventricle systolic function is low normal.(EF-50%, A fib). There is borderline global hypokinesis of the left ventricle. A fib. No left ventricle thrombus noted on this study. There is no ventricular septal defect visualized. There is no left ventricular aneurysm. There is no mass noted in the left ventricle. RIGHT VENTRICLE The right ventricle is normal size. There is normal right ventricular wall thickness. The right ventricular systolic function is normal. ATRIA The left atrium is mildly dilated. The right atrium size is normal. The interatrial septum is intact with no evidence for an atrial septal defect. AORTIC VALVE The aortic valve is calcified and displays decreased opening. There is mild aortic regurgitation. There is mild valvular aortic stenosis. There is no aortic valvular vegetation. MITRAL VALVE The mitral valve is thickened but opens well. Mitral regurgitation is trace. There is no mitral valve stenosis. There is no evidence of mitral valve prolapse. TRICUSPID VALVE The tricuspid valve leaflets are thickened , but open well. There is mild tricuspid regurgitation.RVSP- Not Recoreded. . There is no tricuspid valve stenosis. There is no tricuspid valve prolapse or vegetation. PULMONIC VALVE The pulmonary valve is normal in structure. There is trace pulmonic valvular regurgitation. There is no pulmonic valvular stenosis. GREAT VESSELS The aortic root is normal in size. The ascending aorta is normal in size. The pulmonary artery is normal. The IVC is dilated. PERICARDIAL EFFUSION There is no pleural effusion. There is no pericardial effusion. <Conclusion> The left ventricle is normal size. There is borderline to mild concentric left ventricular hypertrophy. Left ventricle systolic function is low normal.(EF-50%, A fib). There is mild aortic regurgitation. Mitral regurgitation is trace. There is mild tricuspid regurgitation.RVSP- coluld not be obtained. There is trace pulmonic valvular regurgitation. The IVC is dilated. There is no pericardial effusion.
--- NOTE | 2018-11-06 22:11 | CARD ---
APPROVED REPORT Date of service: 11/06/2018 Protocol: LEXISCAN Test Type: Lexiscan Sestamibi Stress Test Attending Physician: Dr. Khadijah Day Referring Physician: Dr. Paulie Charles Test Indications: Dyspnea Height:5 ft 9 in Weight:250lbs Medications: ELIQUIS, ASPIRIN, COZAAR, LOPRESSOR ZOFRAN Medical History: 68 YEAR OLD MALE WITH H/O HTN, MULTIPLE SCLEROSIS AND BLADDER CANCER Target HR: 150 bpm Resting ECG: Atrial Fibrillation. Non Specific ST-T Changes. Resting Heart Rate: 90 bpm Resting Blood Pressure: 126/85mmHg Submaximum (85%): 128 bpm PROCEDURE Pharmacologic stress testing was performed using 0.4mg per 5ml of regadenoson given intravenously over 7-10 seconds. POST EXERCISE Reason for Termination: Protocol completed Target HR: No Max HR: 76 bpm 66% of Maximum Predicted HR: 150 bpm Exercise duration: 00:31 min:sec, 0 Stage Exercise capacity: 1.0METs Max Blood Pressure: 126/85mmHg Blood Pressure response to exercise: normal resting BP - appropriate response Heart Rate response to exercise: appropriate Chest Pain: No, none Angina index: 0 Arrhythmia: Yes, Occasional PVCs/Abberrantly Conducted Beats. ST Change: No, none Deviation: 0 mm INTERPRETATION Stress EKG Conclusion: IV LEXISCAN NUCLEAR STRESS TEST NEGATIVE FOR CHEST PAIN AND NEGATIVE FOR ANY ADDITONAL ST-T CHANGES. NUCLEAR SCAN REPORT PENDING.I Signed by Khadijah Day Electronically Approved: 11/06/2018 13:43:42 EXAM: Myocardial Perfusion STRESS/REST Stress Test Type: Pharmacologic Imaging Protocol The imaging protocol used to acquire images was Stress Tc-99m/rest Tc-99m 1 day Rest Spect myocardial perfusion imaging was performed in supine position 60 minutes following the injection of 30.4 mCi of Tc-99 Myoview. At peak stress, the patient was injected intravenously with 10.4mCi of Tc-99 tetrofosmin after an infusion time of 0 minutes and 10 seconds. Gated Stress Spect was performed 50 minutes after intravenous Tc-99 Myoview injection. The images were gated to evaluate regional wall motion and calculate ventricular ejection fraction.Images were reconstructed using backfilter projection method in short horizontal and verticle long axis. Spect slices were generated. LV Perfusion The quality of the study is good. The left ventricle is mildly enlarged in size. The right ventricle is unremarkable. The lung uptake is normal. The distribution of tracer reveals an area of moderately decreased perfusion involving apical and inferior williamson on the stress study. The remainder of the LV myocardium is unremarkable. The rest myocardial perfusion study shows partial improvement of the defects. Wall Motion Wall motion study shows borderline normal contractility of the left ventricle. LVEF = 49%. Conclusion 1. Probably abnormal SPECT myocardial perfusion study. 2. Partially reverislble, apical and inferior defects are are suspicious of ischemia. Portion of inferior defect could be due to diaphragmatic attenuation. 3. Borderline normal gated wall motion of the left ventricle.
[2018-11-16] MEDS ORDERED: SODIUM CHLORIDE 0.9% IV SCH (16:15)
[2018-11-16] MEDS ORDERED: NATALIZUMAB IV SCH (16:15)
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
== END 2018-11-06 16:42 | disposition home or self-care (01) ==
LOC: ED 09:35 → ERH 13:34 → 3RNO 15:33
PROVIDERS: ADMIT Internal Medicine; ATTEND Internal Medicine
DX: I48.91 Unspecified atrial fibrillation (principal); G35 Multiple sclerosis; I25.10 Atherosclerotic heart disease of native coronary artery without angina pectoris; I10 Essential (primary) hypertension; F17.210 Nicotine dependence, cigarettes, uncomplicated; E66.9 Obesity, unspecified; Z68.36 Body mass index [BMI] 36.0-36.9, adult; Z85.51 Personal history of malignant neoplasm of bladder; Z86.711 Personal history of pulmonary embolism; Z86.718 Personal history of other venous thrombosis and embolism; Z79.01 Long term (current) use of anticoagulants; Z99.3 Dependence on wheelchair; Z91.81 History of falling
CPT/HCPCS: 70450; 71045; 78452; 80053; 81001; 82550; 82948; 83615; 83735; 84484; 85025; 85610; 85730; 87086; 93005; 93017; 93306; 94640; 96365; 96366; 96375; 96376; 97161; 97530; 99285; A9502; G0378; G0480; G8978; G8979; J2405; J2785; J3411; J7030